=== PATIENT | male | born 1985 | race Caucasian/White ===

== ENCOUNTER → 2019-03-10 | Outpatient (CLI) | payer BC ==
--- NOTE | 2019-03-10 11:54 | US ---
EXAMINATION TYPE: US scrotum with doppler. Grayscale and color Doppler Duplex imaging performed of t meena scrotum. DATE OF EXAM: 03/10/2019 COMPARISON: NONE CLINICAL HISTORY: N50.819 TESTICULAR PAIN,N43.3 TESTICLE HYDROCELE. EXAM MEASUREMENTS: TESTICLES: Right Testicle: 4.4 x 2.2 x 3.2 cm Left Testicle: 4.3 x 2.3 x 2.6 cm EPIDIDYMIS HEAD: Right Epididymis: 1.5 x 0.8 cm Left Epididymis: 1.3 x 0.8 cm Doppler performed to assess for testicular vascularity; good bilateral color flow and waveforms are s een. There is no evidence of testicular torsion. large complex collection inferior and lateral to right testicle, measures 5.5 x 2.3 x 2.7cm. This are a has increased vascular flow. External to the testicle. Small left epi head cyst measures 0.3 x 0.3 cm. IMPRESSION: 1. Area of increased vascularity external to the right testicle could be varicoceles.
== END | disposition home or self-care (01) ==
LOC: RADUSWWP 10:54
PROVIDERS: ATTEND Internal Medicine
DX: N43.3 Hydrocele, unspecified (principal); Z88.2 Allergy status to sulfonamides
CPT/HCPCS: 76870; 93975

== ENCOUNTER 2019-03-16 17:36 | Emergency (ER) | payer BC ==
[2019-03-16 18:02] VITALS: RESP 18
[2019-03-16] MEDS ORDERED: SODIUM CHLORIDE 0.9% 1,000 ML IV STA (18:40)
[2019-03-16] MEDS ORDERED: IBUPROFEN 800 MG TAB PO STA (18:41)
[2019-03-16] MEDS ORDERED: ACETAMINOPHEN TAB 500 MG TAB PO STA (18:41)
--- NOTE | 2019-03-16 18:42 | ED ---
Male Urogenital HPI - General Chief complaint: Urogenital Stated complaint: testicular pain Time Seen by Provider: 03/16/19 18:01 Source: patient, family, RN notes reviewed, old records reviewed Mode of arrival: ambulatory Limitations: no limitations - History of Present Illness Initial comments: This is a 31-year-old male the ER for evaluation. Patient presented with recurrent episodes of syncope pain for symptoms a few weeks ago most recently about 2 days but she did have outpatient off some. Patient is now also complaining of fever. Patient has significant scrotal pain swelling and erythema. Denies dysuria. Nausea no vomiting. States he does not feel well. No prior history of similar complaint, denies unusual sexual practices MD Complaint: testicle pain, testicle swelling -: days(s) Location: right testicle, left testicle Radiation: none Severity: moderate Severity scale (1-10): 3 Consistency: constant Improves with: none Worsens with: none Reports: swelling, fever - Related Data Home Medications Medication Instructions Recorded Confirmed Ciprofloxacin HCl [Cipro] 500 mg PO Q12HR 03/16/19 03/16/19 Dextroamphetamine/Amphetamine 30 mg PO BID 03/16/19 03/16/19 [Adderall] Diclofenac Sodium [Voltaren] 75 mg PO BID 03/16/19 03/16/19 methylPREDNISolone [Medrol Dose See Taper PO DIRECTED 03/16/19 03/16/19 Pack] Allergies Allergy/AdvReac Type Severity Reaction Status Date / Time Sulfa (Sulfonamide Allergy Anaphylaxis Verified 03/16/19 18:22 Antibiotics) Review of Systems ROS Statement: Those systems with pertinent positive or pertinent negative responses have been documented in the HPI. ROS Other: All systems not noted in ROS Statement are negative. Past Medical History Past Medical History: No Reported History History of Any Multi-Drug Resistant Organisms: None Reported Past Surgical History: Adenoidectomy Past Psychological History: No Psychological Hx Reported Smoking Status: Current some day smoker Past Alcohol Use History: Rare Past Drug Use History: None Reported General Exam Limitations: no limitations General appearance: alert, in no apparent distress Head exam: Present: atraumatic, normocephalic, normal inspection Eye exam: Present: normal appearance, PERRL, EOMI. Absent: scleral icterus, conjunctival injection, periorbital swelling ENT exam: Present: normal exam, mucous membranes moist Neck exam: Present: normal inspection. Absent: tenderness, meningismus, lymphadenopathy Respiratory exam: Present: normal lung sounds bilaterally. Absent: respiratory distress, wheezes, rales, rhonchi, stridor Cardiovascular Exam: Present: regular rate, normal rhythm, normal heart sounds. Absent: systolic murmur, diastolic murmur, rubs, gallop, clicks GI/Abdominal exam: Present: soft, normal bowel sounds. Absent: distended, tenderness, guarding, rebound, rigid exam: Present: testicular tenderness, scrotal swelling Extremities exam: Present: normal inspection, full ROM, normal capillary refill. Absent: tenderness, pedal edema, joint swelling, calf tenderness Back exam: Present: normal inspection Neurological exam: Present: alert, oriented X3, CN II-XII intact Psychiatric exam: Present: normal affect, normal mood Skin exam: Present: warm, dry, intact, normal color. Absent: rash Course Vital Signs 03/16/19 17:58 Temperature 102.5 F H Pulse Rate 96 Respiratory 18 Rate Blood Pressure 146/70 O2 Sat by Pulse 97 Oximetry - Reevaluation(s) Reevaluation #1: 03/16/19 19:19 Medical records reviewed Reevaluation #2: 03/16/19 19:19 Patient feeling better with fever control and hydration Medical Decision Making - Medical Decision Making 33 male the ER for evaluation of scrotal pain and tenderness. Severe. Positive minimal orchitis, patient will be discharged home on antibiotics. - Lab Data Result diagrams: 03/16/19 19:11 03/16/19 19:11 Lab Results 03/16/19 03/16/19 03/16/19 Range/Units 18:26 19:11 19:11 WBC 8.3 (3.8-10.6) k/uL RBC 5.06 (4.30-5.90) m/uL Hgb 15.3 (13.0-17.5) gm/dL Hct 44.0 (39.0-53.0) % MCV 87.0 (80.0-100.0) fL MCH 30.2 (25.0-35.0) pg MCHC 34.7 (31.0-37.0) g/dL RDW 12.8 (11.5-15.5) % Plt Count 207 (150-450) k/uL Neutrophils % 83 % Lymphocytes % 9 % Monocytes % 6 % Eosinophils % 1 % Basophils % 0 % Neutrophils # 6.9 (1.3-7.7) k/uL Lymphocytes # 0.7 L (1.0-4.8) k/uL Monocytes # 0.5 (0-1.0) k/uL Eosinophils # 0.1 (0-0.7) k/uL Basophils # 0.0 (0-0.2) k/uL Sodium 136 L (137-145) mmol/L Potassium 4.0 (3.5-5.1) mmol/L Chloride 104 (98-107) mmol/L Carbon Dioxide 24 (22-30) mmol/L Anion Gap 8 mmol/L BUN 9 (9-20) mg/dL Creatinine 0.87 (0.66-1.25) mg/dL Est GFR (CKD-EPI)AfAm >90 (>60 ml/min/1.73 sqM) Est GFR (CKD-EPI)NonAf >90 (>60 ml/min/1.73 sqM) Glucose 109 H (74-99) mg/dL Calcium 8.7 (8.4-10.2) mg/dL Phosphorus 3.3 (2.5-4.5) mg/dL Magnesium 1.7 (1.6-2.3) mg/dL Total Bilirubin 0.6 (0.2-1.3) mg/dL AST 22 (17-59) U/L ALT 60 (21-72) U/L Alkaline Phosphatase 51 (38-126) U/L Total Protein 6.2 L (6.3-8.2) g/dL Albumin 3.5 (3.5-5.0) g/dL Urine Color Yellow Urine Appearance Cloudy (Clear) Urine pH 6.0 (5.0-8.0) Ur Specific [place] 1.023 (1.001-1.035) Urine Protein 1+ H (Negative) Urine Glucose (UA) Negative (Negative) Urine Ketones Negative (Negative) Urine Blood Small H (Negative) Urine Nitrite Negative (Negative) Urine Bilirubin Negative (Negative) Urine Urobilinogen <2.0 (<2.0) mg/dL Ur Leukocyte Esterase Large H (Negative) Urine RBC 54 H (0-5) /hpf Urine WBC >182 H (0-5) /hpf Urine WBC Clumps Many H (None) /hpf Ur Squamous Epith Cells 1 (0-4) /hpf Urine Mucus Many H (None) /hpf - Radiology Data Radiology results: report reviewed (Ultrasound scrotum shows positive hypervascularity right testicle, CT head and pelvis negative for acute disease), image reviewed Disposition Clinical Impression: Epididymo-orchitis Disposition: HOME SELF-CARE Condition: Good Instructions (If sedation given, give patient instructions): Epididymo-Orchitis (ED) Is patient prescribed a controlled substance at d/c from ED?: No Referrals: Vianca Nugent MD [Primary Care Provider] - 1-2 days
[2019-03-16 18:46] LABS: Appearance,Urine Cloudy (Clear); Bilirubin,Urine Negative (Negative); Blood,Urine Small (Negative); Color,Urine Yellow; Glucose,Urine (UA) Negative (Negative); Ketones,Urine Negative (Negative); Leukocyte Esterase,Urine Large (Negative); Mucus,Urine Many /hpf; Nitrite,Urine Negative (Negative); Protein,Urine 1+ (Negative); RBC,Urine 54 /hpf (0-5); Specific Gravity,Urine 1.023 (1.001-1.035); Squamous Epithelial Cell,Urine 1 /hpf (0-4); Urobilinogen,Urine <2.0 mg/dL (<2.0); WBC,Urine >182 /hpf (0-5)
[2019-03-16 19:34] LABS: Basophils % (A) 0 %; Eosinophils # (A) 0.1 k/uL (0-0.7); Eosinophils % (A) 1 %; HGB 15.3 gm/dL (13.0-17.5); Lymphocytes # (A) 0.7 k/uL (1.0-4.8); Lymphocytes % (A) 9 %; MCH 30.2 pg (25.0-35.0); MCHC 34.7 g/dL (31.0-37.0); Mean Platelet Volume 6.7; Monocytes # (A) 0.5 k/uL (0-1.0); Monocytes % (A) 6 %; Neutrophils # (A) 6.9 k/uL (1.3-7.7); Neutrophils % (A) 83 %; Platelet Count 207 k/uL (150-450); RBC 5.06 m/uL (4.30-5.90); RDW 12.8 % (11.5-15.5); WBC 8.3 k/uL (3.8-10.6)
[2019-03-16 19:41] LABS: ALT 60 U/L (21-72); AST 22 U/L (17-59); African American GFR (CKD) >90 (>60 ml/min/1.73 sqM); Albumin 3.5 g/dL (3.5-5.0); Alkaline Phosphatase 51 U/L (38-126); Anion Gap 8 mmol/L; Blood Urea Nitrogen 9 mg/dL (9-20); Calcium 8.7 mg/dL (8.4-10.2); Carbon Dioxide 24 mmol/L (22-30); Chloride 104 mmol/L (98-107); Glucose 109 mg/dL (74-99); Magnesium 1.7 mg/dL (1.6-2.3); Phosphorus 3.3 mg/dL (2.5-4.5); Sodium 136 mmol/L (137-145); Total Bilirubin 0.6 mg/dL (0.2-1.3); Total Protein 6.2 g/dL (6.3-8.2)
[2019-03-16] MEDS ORDERED: AZITHROMYCIN 500 MG TAB PO STA (20:26)
--- NOTE | 2019-03-16 20:26 | US ---
EXAMINATION TYPE: US scrotum with doppler. Grayscale and color Doppler Duplex imaging performed of t he scrotum. DATE OF EXAM: 03/16/2019 COMPARISON: US CLINICAL HISTORY: Pain. Pain outside right testicle x 1 week. EXAM MEASUREMENTS: TESTICLES: Right Testicle: 4.2 x 3.5 x 2.5 cm Left Testicle: 4.3 x 2.9 x 2.4 cm EPIDIDYMIS HEAD: Right Epididymis: 1.3 x 1.9 x 1.0 cm Left Epididymis: 1.4 x 1.8 x 1.0 cm Doppler performed to assess for testicular vascularity; good bilateral color flow and waveforms are s een. There is no evidence of testicular torsion. Presence of hydroceles: Right: 3.0 x 0.7 x 1.0 cm. Presence of varicoceles: not seen ?Heterogeneous area lateral to right testicle measurin.7 x 2.7 x 1.7 cm. ?Epididymis. Increased v ascularity. Heterogeneous area adjacent to left testicle appears to be epididymis. ?Increased vascularity. Anechoic area seen left epididymal head: 0.4 x 0.4 x 0.4 cm. IMPRESSION: No testicular torsion or mass. Right-sided hydrocele. There is some hypervascularity on t he right side suggestive of epididymitis.
[2019-03-16] MEDS ORDERED: CIPROFLOXACIN HCL 500 MG TAB PO STA (20:29)
[2019-03-16 20:51] VITALS: BP 117/57; PULSE 83; TEMP 98
--- NOTE | 2019-03-16 21:04 | CT ---
EXAMINATION TYPE: CT abdomen pelvis wo con DATE OF EXAM: 03/16/2019 COMPARISON: None HISTORY: Testicular swelling and pain x1 week, mostly RT side. PT denies any injury. CT DLP: 1939.8 mGycm Automated exposure control for dose reduction was used. TECHNIQUE: Helical acquisition of images was performed from the lung bases through the pelvis. FINDINGS: Lung bases are clear. There is no pleural effusion. Heart size is normal. Stomach appears normal. Liver spleen pancreas gallbladder appear normal. Bile ducts are not dilated. There is no adrenal mass. Kidneys have normal size and contour. There is no hydronephrosis. There is no retroperitoneal adenopathy. Appendix appears normal. Ureters are not dilated. Bladder distends smoothly. There is some thickening of the right side spermatic cord. There is mild f at stranding of the right hemiscrotum. There is no free fluid in the pelvis. There are sigmoid diverticula. There is no sign of diverticulit is. There is no mesenteric edema. There is no ascites or free air. The lumbar spine is intact. Bony p ayred appears intact. IMPRESSION: NO RENAL STONE OR OBSTRUCTION. NORMAL APPENDIX. THERE IS EVIDENCE OF SOME INFLAMMATORY CHANGES OF THE RIGHT HEMISCROTUM THAT IS PARTLY VISUALIZED AND CONSISTENT WITH EPIDIDYMITIS.
== END 2019-03-16 21:35 | disposition home or self-care (01) ==
LOC: EC 17:36
DX: N45.3 Epididymo-orchitis (principal); R55 Syncope and collapse; F17.200 Nicotine dependence, unspecified, uncomplicated; Z88.2 Allergy status to sulfonamides
CPT/HCPCS: 36415; 80053; 83735; 84100; 85025; 81001; 87040; 87491; 87591; 87086; 93975; 76870; 74176; 96365; 96361; 99285; J0696

== ENCOUNTER → 2023-01-30 | Outpatient (CLI) | payer OTHER ==
--- NOTE | 2023-01-30 11:09 | XR ---
EXAMINATION TYPE: XR chest 2V DATE OF EXAM: 01/30/2023 10:48 AM COMPARISON: None TECHNIQUE: XR chest 2V Frontal and lateral views of the chest. CLINICAL INDICATION:Male, 37 years old with history of COUGH; FINDINGS: Lungs/Pleura: There is no evidence of pleural effusion, focal consolidation, or pneumothorax. Pulmonary vascularity: Unremarkable. Heart/mediastinum: Cardiomediastinal silhouette is unremarkable. Musculoskeletal: No acute osseous pathology. Remote right rib injury. IMPRESSION: No acute cardiopulmonary disease/process.
[2023-01-31 09:53] LABS: Basophils # (A) 0.03 X 10*3/uL (0.00-0.10); Basophils % (A) 0.5 %; Eosinophils # (A) 0.18 X 10*3/uL (0.04-0.35); Eosinophils % (A) 2.8 %; HGB 17.2 d/dL (12.0-15.0); Lymphocytes # (A) 1.04 X 10*3/uL (0.90-5.00); Lymphocytes % (A) 16.2 %; MCH 30.6 pg (27.0-32.0); MCHC 34.4 d/dL (32.0-37.0); MCV 88.8 FL (80.0-97.0); Mean Platelet Volume 10.5 FL (9.5-12.2); Monocytes # (A) 0.53 X 10*3/uL (0.20-1.00); Monocytes % (A) 8.3 %; NRBC Per 100 WBC 0 X 10*3/uL (0.00-0.01); Neutrophils # (A) 4.63 X 10*3/uL (1.80-7.70); Platelet Count 199 X 10*3/uL (140-440); RBC 5.63 X 10*6/uL (4.40-5.60); RDW 12.3 % (11.5-14.5); WBC 6.42 X 10*3/uL (4.50-10.00)
[2023-01-31 10:45] LABS: % Iron Saturation 18.23 (15.00-50.00); ALT 28 U/L (10-49); AST 25 U/L (14-35); Albumin 5.1 d/dL (3.8-4.9); Albumin/Globulin Ratio 2.12 Ratio (1.60-3.17); Alkaline Phosphatase 53 U/L (41-126); BUN/Creat Ratio 25.25 Ratio (12.00-20.00); Blood Urea Nitrogen 20.2 mg/dL (9.0-27.0); C Reactive Protein <0.30 mg/dL (0.00-0.80); Carbon Dioxide 24.6 mmol/L (21.6-31.8); Chloride 104 mmol/L (96-109); Chol/HDL Ratio 2.84 Ratio; Creatine Kinase 170 U/L (35-257); Globulin 2.4 d/dL (1.6-3.3); Glucose 100 mg/dL (70-110); Iron 76 UG/DL (65-175); LDL Cholesterol,Calculated 101.3 mg/dL (0.0-131.0); Magnesium 2.1 mg/dL (1.5-2.4); Phosphorus 2.9 mg/dL (2.4-5.1); Potassium 4.8 mmol/L (3.5-5.5); Sodium 140 mmol/L (135-145); Total Bilirubin 0.5 mg/dL (0.3-1.2); Total Iron Binding Capacity 417 UG/DL (228-460); Total Protein 7.5 d/dL (6.2-8.2); Uric Acid 5.2 mg/dL (3.7-8.7); VLDL Calculation 11.48 mg/dL (5.00-40.00)
[2023-01-31 14:10] LABS: Erythrocyte Sedimentation Rate 1 mm/Hr (0-15)
[2023-01-31 17:46] LABS: Microalbumin Creatinine Ratio <46 mg/g Cr (0-30); Urine Creatinine 26.3 mg/dL (39.0-259.0)
== END | disposition home or self-care (01) ==
LOC: LABWHC1 10:09
PROVIDERS: ATTEND Internal Medicine
DX: Z00.00 Encounter for general adult medical examination without abnormal findings (principal); I10 Essential (primary) hypertension; D64.9 Anemia, unspecified; M10.9 Gout, unspecified; E78.5 Hyperlipidemia, unspecified; E11.65 Type 2 diabetes mellitus with hyperglycemia; N39.0 Urinary tract infection, site not specified; E55.9 Vitamin D deficiency, unspecified
CPT/HCPCS: 36415; 71046; 80053; 80061; 82043; 82306; 82550; 82570; 82728; 83036; 83540; 83550; 83735; 84100; 84153; 84443; 84550; 85025; 85652; 86140

== ENCOUNTER → 2023-08-05 | Outpatient (CLI) | payer OTHER ==
[2023-08-05 10:00] LABS: Basophils % (A) 0 %; Eosinophils # (A) 0.1 k/uL (0-0.7); Eosinophils % (A) 2 %; HCT 49.1 % (39.0-53.0); HGB 16.9 gm/dL (13.0-17.5); Lymphocytes # (A) 1.6 k/uL (1.0-4.8); Lymphocytes % (A) 19 %; MCH 31.4 pg (25.0-35.0); MCHC 34.4 g/dL (31.0-37.0); MCV 91.2 fL (80.0-100.0); Mean Platelet Volume 7.9; Monocytes # (A) 0.4 k/uL (0-1.0); Monocytes % (A) 5 %; Neutrophils # (A) 5.8 k/uL (1.3-7.7); Neutrophils % (A) 72 %; Platelet Count 209 k/uL (150-450); RBC 5.39 m/uL (4.30-5.90); RDW 12.3 % (11.5-15.5); WBC 8.1 k/uL (3.8-10.6)
== END | disposition home or self-care (01) ==
LOC: LABPAT 08:43
PROVIDERS: ATTEND Surgery
DX: Z01.812 Encounter for preprocedural laboratory examination (principal); I10 Essential (primary) hypertension; K40.90 Unilateral inguinal hernia, without obstruction or gangrene, not specified as recurrent; I45.10 Unspecified right bundle-branch block
CPT/HCPCS: 36415; 85025; 93005

== ENCOUNTER 2023-08-06 06:15 | Day surgery (SDC) | payer OTHER ==
[~2023-08-06 06:15] MED LIST: ACETAMINOPHEN TAB 500 MG TAB PO PRN; DEXAMETHASONE SOD PHOSPHATE 4 MG/ML 1 ML VIAL IV ONE; HEPARIN SODIUM,PORCINE 5,000 UNIT/ML 1 ML VIAL SQ PRN; LACTATED RINGERS 1,000 ML IV SCH; LIDOCAINE 1% (10MG/ML) FOR IV START INTRADERMA PRN; ONDANSETRON 4 MG/2 ML VIAL IVP ONE; droPERidol 5 MG/2 ML VIAL IVP ONE
[2023-08-06] MEDS ORDERED: HYDROmorphone 0.5 MG/0.5 ML SYRINGE IVP PRN (07:00)
[2023-08-06] MEDS ORDERED: fentaNYL (PF) 50 MCG/ML 2 ML AMP ONE (07:27)
[2023-08-06] MEDS ORDERED: PHENYLEPHRINE-0.9% NACL SYG 1,000 MCG/10 ML SYRINGE ONE (07:27)
[2023-08-06] MEDS ORDERED: MIDAZOLAM 2 MG/2 ML VIAL ONE (07:27)
[2023-08-06] MEDS ORDERED: PROPOFOL 10 MG/ML 20 ML VIAL IV ONE (07:27)
[2023-08-06] MEDS ORDERED: LIDOCAINE 1% INJ 10MG/ML (20 ML MDV) ONE (07:27)
[2023-08-06] MEDS ORDERED: KETOROLAC 15 MG/ML 1 ML VIAL ONE (07:27)
[2023-08-06] MEDS ORDERED: GLYCOPYRROLATE 0.2 MG/ML 2 ML VIAL ONE (07:27)
[2023-08-06] MEDS ORDERED: HYDROmorphone (PF) 1 MG/ML ONE (07:27)
[2023-08-06] MEDS ORDERED: ROCURONIUM 10 MG/ML (5 ML VIAL) IV ONE (07:27)
[2023-08-06] MEDS ORDERED: NEOSTIGMINE 1 MG/ML 10 ML VIAL ONE (07:27)
[2023-08-06] MEDS ORDERED: SUCCINYLCHOLINE CHLORIDE 200 MG/10 ML VIAL IV ONE (07:27)
--- NOTE | 2023-08-06 07:27 | P.GSHP ---
History of Present Illness H&P Date: 08/06/23 Chief Complaint: Left inguinal hernia 38-year-old male here today for laparoscopic repair left inguinal hernia. This is been present for the last several months. Gradually increasing in size. Mild soreness. No symptoms on the right. Past Medical History Past Medical History: No Reported History Additional Past Medical History / Comment(s): Lt. inguinal hernia History of Any Multi-Drug Resistant Organisms: None Reported Past Surgical History: Adenoidectomy Past Anesthesia/Blood Transfusion Reactions: No Reported Reaction Past Psychological History: No Psychological Hx Reported Past Drug Use History: None Reported - Past Family History Father Family Medical History: No Reported History Mother Family Medical History: No Reported History Medications and Allergies Home Medications Medication Instructions Recorded Confirmed Type Dextroamphetamine/Amphetamine 10 mg PO BID 08/02/23 08/02/23 History [Adderall] Multivitamin [Multivitamins Adult 1 tab PO DAILY 08/02/23 08/02/23 History Gummies] amLODIPine [Norvasc] 2.5 mg PO BID 08/02/23 08/02/23 History lisinopriL 2.5 mg PO BID 08/02/23 08/02/23 History Allergies Allergy/AdvReac Type Severity Reaction Status Date / Time Sulfa (Sulfonamide Allergy Anaphylaxis Verified 08/06/23 06:42 Antibiotics) Surgical - Exam Vital Signs Temp Pulse Resp BP Pulse Ox 96.9 F L 63 16 141/76 98 08/06/23 06:50 08/06/23 06:50 08/06/23 06:50 08/06/23 06:50 08/06/23 06:50 Physical exam: General: Well-developed, well-nourished HEENT: Normocephalic, sclerae nonicteric Abdomen: Nontender, nondistended, reducible left inguinal hernia Extremities: No edema Neuro: Alert and oriented Assessment and Plan (1) Left inguinal hernia Narrative/Plan: 38-year-old male with reducible left inguinal hernia. We'll proceed with laparoscopic da Karin assisted repair left inguinal hernia with mesh for possible open, possible bilateral. Risks of bleeding, infection, recurrence, bladder and bowel injury, numbness, nerve injury, conversion to an open procedure were discussed with the patient. The patient understands and wishes to proceed. Current Visit: Yes Status: Acute Code(s): K40.90 - UNIL INGUINAL HERNIA, W/O OBST OR GANGR, NOT SPCF RECUR SNOMED Code(s): 831473552
[2023-08-06] MEDS ORDERED: BUPIVACAINE (PF) 0.25% 10 ML VIAL SQ ONE ×2 (07:29→07:55)
[2023-08-06] MEDS ORDERED: LACTATED RINGERS 1,000 ML IV ONE ×2 (09:22→11:08)
--- NOTE | 2023-08-06 09:28 | P.OP ---
Date of Procedure: 08/06/23 Procedure(s) Performed: PREOPERATIVE DIAGNOSIS: Left inguinal hernia POSTOPERATIVE DIAGNOSIS: Left indirect inguinal hernia PROCEDURE: Da Karin assisted repair left indirect inguinal hernia with mesh SURGEON: Dr. Zaman ANESTHESIA: General OPERATIVE PROCEDURE DETAILS: Patient was placed in the operating table in the supine position. The patient was placed under general anesthesia. The abdomen was prepped and draped in usual sterile fashion. A small curvilinear supraumbilical incision was made. The fascia was retracted anteriorly with Renetta forceps. The Veress needle was inserted. The saline drop test was normal. Insufflation took place to 15 mmHg. An 8 mm trocar was placed into the peritoneal cavity. 2 additional 8 mm trochars were placed in the right upper quadrant and left upper quadrant under visualization. The robotic arms were then brought in and docked into place. The fenestrated bipolar was used in the left arm and the laparoscopic linh was utilized in the right arm. A 30 8 mm scope was used in the up position. The peritoneal cavity was inspected. The patient a large indirect hernia on the left-hand side. There was some chronic induration at the hernia sac. The peritoneum was incised in a horizontal fashion cephalad to the internal inguinal ring. Following that careful dissection of the preperitoneal space took place. This took place using both electrocautery, sharp dissection but primarily blunt dissection. Visualization of the pubic tubercle and Reginaldo's ligament took place medially. Full dissection took place laterally as well. The hernia sac was fully dissected. Once we had adequate space the [id number] Progrip mesh was advanced into the preperitoneal space and flattened out appropriately to cover all potential hernia sites. The mesh was sutured medially to the Reginaldo's ligament and midline using a running 30 absorbable the lock suture. The peritoneal defect was then closed using a absorbable 2-0 VLok suture. The hernia sac was incorporated into the peritoneal closure to help prevent future recurrence. The pneumoperitoneum was then evacuated. The skin of all 3 sites was closed using a 4-0 Monocryl stitch. Skin glue was then applied. TYPE OF MESH USED: 15 cm progrip LOCATION OF MESH: Preperitoneal FIXATION: 3 LV lock PREOPERATIVE DISCUSSION ON SMOKING CESSASTION: Yes PREOPERATIVE DISCUSSION ON MORBID OBESITY: Yes PREOPERATIVE DISCUSSION ON APPROPRIATE USE OF NARCOTIC USE: Yes PREOPERATIVE EDUCATION: Multi Modal, Smoking Cessation and Weight Loss with BMI over 35. DISPOSITION: Stable to recovery room
[2023-08-06 10:06] VITALS: TEMP 97.6
[2023-08-06 11:19] VITALS: BP 109/65; PULSE 54; RESP 14
[2023-08-06] MEDS ORDERED: TAMSULOSIN 0.4 MG CAP.ER.24H PO STA (11:44)
[2023-08-06] MEDS ORDERED: TAMSULOSIN 0.4 MG CAP.ER.24H PO ONE (11:49)
[2023-08-06] MEDS ORDERED: ACETAMINOPHEN TAB 325 MG TAB PO SCH (12:00)
[2023-08-06] MEDS ORDERED: IBUPROFEN 600 MG TAB PO SCH (12:30)
== END 2023-08-06 12:44 | disposition home or self-care (01) ==
LOC: OR 06:15
PROVIDERS: ATTEND Surgery
DX: K40.90 Unilateral inguinal hernia, without obstruction or gangrene, not specified as recurrent (principal); I10 Essential (primary) hypertension; Z79.899 Other long term (current) drug therapy; Z87.891 Personal history of nicotine dependence; Z88.2 Allergy status to sulfonamides; Z88.1 Allergy status to other antibiotic agents
CPT/HCPCS: 49650; S2900

== ENCOUNTER 2023-08-20 12:31 | Emergency (ER) | payer OTHER ==
[2023-08-20 13:11] VITALS: RESP 18
--- NOTE | 2023-08-20 13:55 | US ---
EXAMINATION TYPE: US groin LT DATE OF EXAM: 08/20/2023 COMPARISON: NONE CLINICAL INDICATION: Male, 38 years old with history of pain, swelling, s/p hernia repair; Lt groin h ernia repair x 2 weeks ago, pain and discomfort ever since, pt. still feels tissue in left scrotum TECHNIQUE: several images acquired at area of concern FINDINGS: the spermatic cord appears edematous with varicoceles. There appears to be a possible pers istent 1.7cm fat herniation in the scrotum which is reducible with compression. IMPRESSION: As above
--- NOTE | 2023-08-20 15:19 | ED ---
General Adult HPI - General Chief complaint: Recheck/Abnormal Lab/Rx Stated complaint: Post op comp- hernia Time Seen by Provider: 08/20/23 12:57 Source: patient, RN notes reviewed Mode of arrival: ambulatory Limitations: no limitations - History of Present Illness Initial comments: 38-year-old male presents emergency department chief complaint of left-sided groin pain. Patient states he had surgery 2 weeks ago for a left inguinal hernia by Dr. Zaman. Patient states he did have follow-up at 1 week in which he states he was having some mild discomfort in the left he states worsening states every time he stands up he feels some slight down and causes extreme scrotal pain. He states there is some swelling he states it feels similar to when he is hernia but slightly different. Denies any redness - Related Data Home Medications Medication Instructions Recorded Confirmed Dextroamphetamine/Amphetamine 10 mg PO BID 08/02/23 08/02/23 [Adderall] Multivitamin [Multivitamins Adult 1 tab PO DAILY 08/02/23 08/02/23 Gummies] amLODIPine [Norvasc] 2.5 mg PO BID 08/02/23 08/02/23 lisinopriL 2.5 mg PO BID 08/02/23 08/02/23 Previous Rx's Medication Instructions Recorded oxyCODONE HCL [OxyIR] 5 mg PO Q6H PRN 3 Days #6 tab 08/06/23 Allergies Allergy/AdvReac Type Severity Reaction Status Date / Time Sulfa (Sulfonamide Allergy Anaphylaxis Verified 08/20/23 12:47 Antibiotics) Review of Systems ROS Statement: Those systems with pertinent positive or pertinent negative responses have been documented in the HPI. ROS Other: All systems not noted in ROS Statement are negative. Past Medical History Past Medical History: No Reported History, Hypertension History of Any Multi-Drug Resistant Organisms: None Reported Past Surgical History: Adenoidectomy, Hernia Repair Past Psychological History: No Psychological Hx Reported Smoking Status: Never smoker Past Alcohol Use History: Occasional Past Drug Use History: None Reported, Marijuana General Exam Limitations: no limitations General appearance: alert, in no apparent distress Head exam: Present: atraumatic, normocephalic, normal inspection Eye exam: Present: normal appearance, PERRL, EOMI. Absent: scleral icterus, conjunctival injection, periorbital swelling ENT exam: Present: normal exam, mucous membranes moist Neck exam: Present: normal inspection, full ROM. Absent: tenderness, meningismus, lymphadenopathy Respiratory exam: Present: normal lung sounds bilaterally. Absent: respiratory distress, wheezes, rales, rhonchi, stridor Cardiovascular Exam: Present: regular rate, normal rhythm, normal heart sounds. Absent: systolic murmur, diastolic murmur, rubs, gallop, clicks GI/Abdominal exam: Present: soft, normal bowel sounds. Absent: distended, tenderness, guarding, rebound, rigid exam: Present: normal inspection, other (Tenderness to the left inguinal region) Back exam: Absent: CVA tenderness (R), CVA tenderness (L) Course Vital Signs 08/20/23 12:44 Temperature 99.1 F Pulse Rate 64 Respiratory 18 Rate Blood Pressure 158/88 O2 Sat by Pulse 100 Oximetry Medical Decision Making - Medical Decision Making Was pt. sent in by a medical professional or institution (, PA, [employer], urgent care, hospital, or correction...) When possible be specific @ -No Did you speak to anyone other than the patient for history (EMS, parent, family, police, friend...)? What history was obtained from this source @ -No Did you review nursing and triage notes (agree or disagree)? Why? @ -I reviewed and agree with nursing and triage notes Were old charts reviewed (outside hosp., previous admission, EMS record, old EKG, old radiological studies, urgent care reports/EKG's, correction records)? Report findings @ -No old charts were reviewed Differential Diagnosis (chest pain, altered mental status, abdominal pain women, abdominal pain men, vaginal bleeding, weakness, fever, dyspnea, syncope, headache, dizziness, GI bleed, back pain, seizure, CVA, palpatations, mental health, musculoskeletal)? @ -[Differential Abdominal Pain Men: Appendicitis, cholecystitis, diverticulosis, ischemic bowel, pancreatitis, hepatitis, UTI, gastroenteritis, AAA, incarcerated hernia, bowel obstruction, constipation, inflammatory bowel, hepatitis, peptic ulcer disease, splenic infarction, perforated viscus, testicular torsion, this is not meant to be an all-inclusive list EKG interpreted by me (3pts min.). @ -None X-rays interpreted by me (1pt min.). @ -[None done CT interpreted by me (1pt min.). @ -None done U/S interpreted by me (1pt. min.). @ -[Ultrasound shows possible small fat-containing area What testing was considered but not performed or refused? (CT, X-rays, U/S, labs)? Why? @ -None What meds were considered but not given or refused? Why? @ -None Did you discuss the management of the patient with other professionals (professionals i.e. Dr., PA, [employer], lab, RT, psych nurse, high school social studies teacher, pharmacognosy teacher, teacher, railway patrol officer, case packer)? Give summary @ -[Dr. Zaman regarding ultrasound and patient's condition Was smoking cessation discussed for >3mins.? @ -No Was critical care preformed (if so, how long)? @ -No Were there social determinants of health that impacted care today? How? (Benigno elessness, low income, unemployed, alcoholism, drug addiction, transportation, low edu. Level, literacy, decrease access to med. care, fci, rehab)? @ -No Was there de-escalation of care discussed even if they declined (Discuss DNR or withdrawal of care, Hospice)? DNR status @ -No What co-morbidities impacted this encounter? (DM, HTN, Smoking, COPD, CAD, Cancer, CVA, ARF, Chemo, Hep., AIDS, mental health diagnosis, sleep apnea, morbid obesity)? @ -None Was patient admitted / discharged? Hospital course, mention meds given and route, prescriptions, significant lab abnormalities, going to OR and other pertinent info. @ -[Discharged patient will follow-up with next week. Patient provided analgesics return parameters were discussed. Undiagnosed new problem with uncertain prognosis? @ -No Drug Therapy requiring intensive monitoring for toxicity (Heparin, Nitro, Insulin, Cardizem)? @ -No Were any procedures done? @ -No Diagnosis/symptom? @ -Groin pain Acute, or Chronic, or Acute on Chronic? @ -[Acute Uncomplicated (without systemic symptoms) or Complicated (systemic symptoms)? @ -Uncomplicated Side effects of treatment? @ -No Exacerbation, Progression, or Severe Exacerbation? @ -No Poses a threat to life or bodily function? How? (Chest pain, [place], [place], pneumonia, PE, COPD, DKA, ARF, appy, cholecystitis, CVA, Diverticulitis, Homicidal, Suicidal, threat to staff... and all critical care pts) @ -No Disposition Clinical Impression: Groin pain Disposition: HOME SELF-CARE Condition: Stable Instructions (If sedation given, give patient instructions): Groin Pain (ED) Additional Instructions: Please return to the Emergency Department if symptoms worsen or any other concerns. Is patient prescribed a controlled substance at d/c from ED?: No Referrals: Jordan Busitllo MD [Primary Care Provider] - 1-2 days Sushil Zaman MD [Medical Doctor] - 1-2 days Time of Disposition: 15:52
[2023-08-20] MEDS ORDERED: ACET/COD 300 MG/30 MG STARTER PACK 6 TAB BTL PO STA (15:53)
[2023-08-20 16:05] VITALS: BP 129/71; PULSE 63; TEMP 98.1
== END 2023-08-20 16:12 | disposition home or self-care (01) ==
LOC: EC 12:31
DX: R10.32 Left lower quadrant pain (principal); I10 Essential (primary) hypertension; F12.90 Cannabis use, unspecified, uncomplicated; Z79.899 Other long term (current) drug therapy; Z88.2 Allergy status to sulfonamides
CPT/HCPCS: 99284

== ENCOUNTER → 2023-08-25 | Outpatient (CLI) | payer OTHER ==
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
== END | disposition home or self-care (01) ==
LOC: RADCTMAIN 16:46
PROVIDERS: ATTEND Surgery
DX: K57.30 Diverticulosis of large intestine without perforation or abscess without bleeding (principal); K40.90 Unilateral inguinal hernia, without obstruction or gangrene, not specified as recurrent; N50.812 Left testicular pain; Z98.890 Other specified postprocedural states
CPT/HCPCS: 72193; Q9967

== ENCOUNTER 2024-01-16 00:12 | Emergency (ER) | payer BC, OTHER ==
[2024-01-16 00:19] VITALS: TEMP 97.5
[2024-01-16] MEDS: DIPH,PERTUS(ACELL)TETVAC-LF 0.5 ML VIAL IM ONE (01:24)
[2024-01-16] MEDS: MORPHINE SULFATE 4 MG/ML SYRINGE IM STA (01:26)
[2024-01-16 01:59] VITALS: RESP 18
[2024-01-16] MEDS: HYDROmorphone 0.5 MG/0.5 ML SYRINGE IM STA (02:47)
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
[2024-01-16 04:07] VITALS: BP 113/65; PULSE 75
--- NOTE | 2024-01-16 04:54 | XR ---
EXAMINATION TYPE: XR tibia fibula LT DATE OF EXAM: 01/16/2024 CLINICAL HISTORY: Fall injury with pain TECHNIQUE: Two views of the left leg are obtained. COMPARISON: None. FINDINGS: There is an acute comminuted minimally displaced fracture through the proximal metadiaphysi s of the tibia with more prominent lateral component having proximal intra-articular extension. There is increased soft tissue density consistent with moderate to large joint effusion possible hemarthro sis at the suprapatellar level. IMPRESSION: There is acute comminuted slightly displaced intra-articular fracture through the proxim al tibia as detailed above.
== END 2024-01-16 04:08 | disposition home or self-care (01) ==
LOC: EC 00:12
DX: S82.142A Displaced bicondylar fracture of left tibia, initial encounter for closed fracture (principal); F12.90 Cannabis use, unspecified, uncomplicated; Z87.891 Personal history of nicotine dependence; Z88.2 Allergy status to sulfonamides; Z23 Encounter for immunization; V29.99XA Rider (driver) (passenger) of other motorcycle injured in unspecified traffic accident, initial encounter
CPT/HCPCS: 73590; 90715; 99284; 96372 ×2; 90471; L1830; J2270; J1170

== ENCOUNTER → 2024-01-17 | Outpatient (CLI) | payer BC ==
--- NOTE | 2024-01-17 16:47 | CT ---
EXAMINATION TYPE: CT knee LT wo con DATE OF EXAM: 01/17/2024 COMPARISON: None HISTORY: trauma CT DLP: 626.8 mGycm Automated exposure control for dose reduction was used. FINDINGS: There is a comminuted, mildly displaced intra-articular fracture of the lateral tibial plateau extend ing through the proximal metaphysis. There is slight compression of the tibial plateau. No other fractures are seen. There is a large joint effusion. There is no abnormal soft tissue calcification or foreign body. IMPRESSION: Comminuted mildly displaced fracture of the lateral tibial plateau.
== END | disposition home or self-care (01) ==
LOC: RADCTMAIN 15:22
PROVIDERS: ATTEND Orthopaedic Surgery
DX: S82.122A Displaced fracture of lateral condyle of left tibia, initial encounter for closed fracture (principal)

== ENCOUNTER → 2024-01-19 | Outpatient (CLI) | payer BC, OTHER ==
[2024-01-19 12:10] LABS: INR 0.9 (<1.2); Prothrombin Time 10.2 sec (10.0-12.5)
[2024-01-19 15:23] LABS: HCT 45.3 % (39.6-50.0); HGB 15.6 g/dL (13.0-17.0); MCH 30.2 pg (27.0-32.0); MCHC 34.4 g/dL (32.0-37.0); MCV 87.6 FL (80.0-97.0); Mean Platelet Volume 9.8 FL (9.5-12.2); NRBC Per 100 WBC 0 X 10*3/uL (0.00-0.01); Platelet Count 207 X 10*3/uL (140-440); RBC 5.17 X 10*6/uL (4.40-5.60); RDW 12.3 % (11.5-14.5); WBC 6.36 X 10*3/uL (4.50-10.00)
[2024-01-19 15:26] LABS: ALT 19 U/L (10-49); AST 20 U/L (14-35); Albumin 4.5 g/dL (3.8-4.9); Albumin/Globulin Ratio 1.88 Ratio (1.60-3.17); Alkaline Phosphatase 55 U/L (41-126); BUN/Creat Ratio 28.14 Ratio (12.00-20.00); Blood Urea Nitrogen 19.7 mg/dL (9.0-27.0); Calcium 9.7 mg/dL (8.7-10.3); Carbon Dioxide 24.4 mmol/L (21.6-31.8); Chloride 104 mmol/L (96-109); Globulin 2.4 g/dL (1.6-3.3); Glucose 103 mg/dL (70-110); Potassium 4.5 mmol/L (3.5-5.5); Sodium 139 mmol/L (135-145); Total Bilirubin 0.5 mg/dL (0.3-1.2); Total Protein 6.9 g/dL (6.2-8.2)
== END | disposition home or self-care (01) ==
LOC: LABPAT 10:57
PROVIDERS: ATTEND Orthopaedic Surgery
DX: Z01.818 Encounter for other preprocedural examination (principal); Z22.322 Carrier or suspected carrier of Methicillin resistant Staphylococcus aureus; M17.12 Unilateral primary osteoarthritis, left knee; E11.9 Type 2 diabetes mellitus without complications; R94.31 Abnormal electrocardiogram [ECG] [EKG]; R00.1 Bradycardia, unspecified; I49.9 Cardiac arrhythmia, unspecified
CPT/HCPCS: 80053; 83036; 85027; 85610; 85730; 87070; 93005

== ENCOUNTER 2024-01-28 08:33 | Day surgery (SDC) | payer BC ==
[~2024-01-28 08:33] MED LIST changes: -ACETAMINOPHEN TAB 500 MG TAB PO PRN; -DEXAMETHASONE SOD PHOSPHATE 4 MG/ML 1 ML VIAL IV ONE; -HEPARIN SODIUM,PORCINE 5,000 UNIT/ML 1 ML VIAL SQ PRN; +HYDROmorphone 0.5 MG/0.5 ML SYRINGE IVP PRN; -LACTATED RINGERS 1,000 ML IV SCH; -LIDOCAINE 1% (10MG/ML) FOR IV START INTRADERMA PRN; +MIDAZOLAM 2 MG/2 ML VIAL IV PRN; -ONDANSETRON 4 MG/2 ML VIAL IVP ONE; -droPERidol 5 MG/2 ML VIAL IVP ONE
[2024-01-28] MEDS: LACTATED RINGERS 1,000 ML IV SCH ×2 (09:24→14:03)
[2024-01-28] MEDS: ONDANSETRON 4 MG/2 ML VIAL IVP ONE (09:24)
[2024-01-28] MEDS: DEXAMETHASONE SOD PHOSPHATE 4 MG/ML 1 ML VIAL IV ONE (09:24)
[2024-01-28] MEDS: IV FLUID CONTINUATION 1,000 ML IV ONE (09:26)
[2024-01-28] MEDS: MIDAZOLAM 2 MG/2 ML VIAL IVP ONE (09:50)
[2024-01-28] MEDS: fentaNYL (PF) 50 MCG/ML 2 ML AMP IVP ONE (09:51)
--- NOTE | 2024-01-28 10:06 | P.ANPRN ---
Procedure Note - Anesthesia - Nerve Block Performed Left Adductor Canal Single Time Out Performed: Yes Date of Procedure: 01/28/24 Procedure Start Time: 09:50 Procedure Stop Time: 09:56 Location of Patient: PreOp Indication: Acute Post-Operative Pain, Requested by Surgeon Sedation Type: Sedate with meaningful contact maintained Preparation: Sterile Prep Position: Supine Needle Types: Pajunk Needle Gauge: 21 Ultrasound used to visualize needle placement: Yes Ultrasound used to observe medication spread: Yes Injectate: 0.5% Ropivacaine (see comment for volume) (30 ml + 4 mg Dexamethasone) Blood Aspirated: No Pain Paresthesia on Injection Noted: No Resistance on Injection: Normal Image Stored and Saved: Yes Events: Uneventful and Well Tolerated
--- NOTE | 2024-01-28 10:07 | P.ANPRN ---
Procedure Note - Anesthesia - Nerve Block Performed Left Popliteal Single Time Out Performed: Yes Date of Procedure: 01/28/24 Procedure Start Time: 09:57 Procedure Stop Time: 10:03 Location of Patient: PreOp Indication: Acute Post-Operative Pain, Requested by Surgeon Sedation Type: Sedate with meaningful contact maintained Preparation: Sterile Prep Position: Right Lateral Needle Types: Pajunk Needle Gauge: 21 Ultrasound used to visualize needle placement: Yes Ultrasound used to observe medication spread: Yes Injectate: 0.5% Ropivacaine (see comment for volume) (30 ml + 4 mg Dexamethasone) Blood Aspirated: No Pain Paresthesia on Injection Noted: No Resistance on Injection: Normal Image Stored and Saved: Yes Events: Uneventful and Well Tolerated
[2024-01-28] MEDS ORDERED: SUCCINYLCHOLINE CHLORIDE 200 MG/10 ML VIAL IV ONE (10:50)
[2024-01-28] MEDS ORDERED: ROPIVACAINE 5 MG/ML 30 ML VIAL ONE (10:50)
[2024-01-28] MEDS ORDERED: PROPOFOL 10 MG/ML 20 ML VIAL IV ONE (10:50)
[2024-01-28] MEDS ORDERED: ROCURONIUM 10 MG/ML (5 ML VIAL) IV ONE (10:50)
[2024-01-28] MEDS ORDERED: NEOSTIGMINE 1 MG/ML 10 ML VIAL ONE (10:50)
[2024-01-28] MEDS ORDERED: TRANEXAMIC 1,000 MG/100ML-NACL PREMIX BAG ONE (10:50)
[2024-01-28] MEDS ORDERED: fentaNYL (PF) 50 MCG/ML 2 ML AMP ONE (10:50)
[2024-01-28] MEDS ORDERED: MIDAZOLAM 2 MG/2 ML VIAL ONE (10:50)
[2024-01-28] MEDS ORDERED: GLYCOPYRROLATE 0.2 MG/ML 2 ML VIAL ONE (10:50)
[2024-01-28] MEDS ORDERED: HYDROmorphone (PF) 1 MG/ML ONE (10:50)
[2024-01-28] MEDS ORDERED: LIDOCAINE 1% INJ 10MG/ML (20 ML MDV) ONE (10:50)
[2024-01-28] MEDS ORDERED: DEXAMETHASONE SOD PHOSPHATE 4 MG/ML 1 ML VIAL ONE (10:50)
[2024-01-28] MEDS: LACTATED RINGERS 1,000 ML IV ONE (12:24)
--- NOTE | 2024-01-28 12:28 | FL ---
EXAMINATION TYPE: FL guidance operating room, XR knee limited LT Intraoperative/procedural fluoroscop ic services were provided. Total fluoroscopy time is 53 seconds with a total of 5 submitted images to PACS. Please see the operative/procedural note for further details. DAP: 0.7609 Gycm2
[2024-01-28] MEDS ORDERED: NA PHOS,M-B/NA PHOS,DI-BA 133 ML ENEMA RECTAL PRN (12:58)
[2024-01-28] MEDS ORDERED: HYDROcodone/APAP 10-325MG 1 EACH TAB PO PRN (12:58)
[2024-01-28] MEDS ORDERED: HYDROmorphone 0.5 MG/0.5 ML SYRINGE IVP PRN ×2 (12:58)
[2024-01-28] MEDS ORDERED: HYDROmorphone 1 MG/ML 1 ML SYRINGE IVP PRN (12:58)
[2024-01-28] MEDS ORDERED: MAGNESIUM HYDROXIDE 2,400 MG/30 ML CUP PO PRN (12:58)
[2024-01-28] MEDS ORDERED: hydrOXYzine pamoate 25 MG CAP PO PRN (12:58)
[2024-01-28] MEDS ORDERED: NALOXONE 0.4 MG/ML 1 ML VIAL IV PRN (12:58)
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
[2024-01-28 13:56] VITALS: RESP 16
[2024-01-28] MEDS: SODIUM CHLORIDE 0.9% 1,000 ML IV SCH (14:25)
[2024-01-28 15:36] VITALS: BP 128/80; PULSE 48; TEMP 97.8
[2024-01-28] MEDS: HYDROcodone/APAP 5-325MG 1 EACH TAB PO PRN (16:44)
[2024-01-28] MEDS ORDERED: SENNOSIDES-DOCUSATE SODIUM 1 EACH TAB PO SCH (21:00)
[2024-01-29] MEDS ORDERED: RIVAROXABAN 10 MG TAB PO SCH (09:00)
== END 2024-01-28 17:18 | disposition home or self-care (01) ==
LOC: OR 08:33 → EDSTATUS 10:20 → 4SSUR 13:50 → OR 17:18
PROVIDERS: ATTEND Orthopaedic Surgery
DX: S82.142A Displaced bicondylar fracture of left tibia, initial encounter for closed fracture (principal); G89.18 Other acute postprocedural pain; I10 Essential (primary) hypertension; Z88.2 Allergy status to sulfonamides; Z87.891 Personal history of nicotine dependence; Z79.899 Other long term (current) drug therapy; V19.9XXA Pedal cyclist (driver) (passenger) injured in unspecified traffic accident, initial encounter
CPT/HCPCS: 73560; 27536; 64445; 64447; J2250; J1100; J0690; J2405; J3010

== ENCOUNTER 2024-02-18 10:17 | Day surgery (SDC) | payer BC, OTHER ==
[~2024-02-18 10:17] MED LIST changes: +LIDOCAINE 1% (10MG/ML) FOR IV START INTRADERMA PRN; -MIDAZOLAM 2 MG/2 ML VIAL IV PRN; +droPERidol 5 MG/2 ML VIAL IVP ONE
[2024-02-18] MEDS: IV FLUID CONTINUATION 1,000 ML IV ONE (11:08)
[2024-02-18] MEDS: LACTATED RINGERS 1,000 ML IV SCH (11:09)
[2024-02-18] MEDS: ONDANSETRON 4 MG/2 ML VIAL IVP ONE (11:09)
[2024-02-18] MEDS: DEXAMETHASONE SOD PHOSPHATE 4 MG/ML 1 ML VIAL IV ONE (11:09)
[2024-02-18] MEDS: ACETAMINOPHEN TAB 500 MG TAB PO PRN (11:19)
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
[2024-02-18] MEDS ORDERED: KETOROLAC 15 MG/ML 1 ML VIAL ONE (12:50)
[2024-02-18] MEDS ORDERED: MIDAZOLAM 2 MG/2 ML VIAL ONE (12:50)
[2024-02-18] MEDS ORDERED: PROPOFOL 10 MG/ML 20 ML VIAL IV ONE (12:50)
[2024-02-18] MEDS ORDERED: fentaNYL (PF) 50 MCG/ML 2 ML AMP ONE (12:50)
[2024-02-18] MEDS ORDERED: KETAMINE HCL IN 0.9 % NACL 50 MG/5 ML SYRINGE ONE (12:50)
[2024-02-18] MEDS ORDERED: GLYCOPYRROLATE 0.2 MG/ML 2 ML VIAL ONE (12:50)
[2024-02-18] MEDS: BUPIVACAINE (PF) 0.25% 30 ML VIAL SQ ONE (13:17)
[2024-02-18] MEDS ORDERED: ACETAMINOPHEN TAB 325 MG TAB PO PRN (13:59)
[2024-02-18] MEDS ORDERED: HYDROcodone/APAP 5-325MG 1 EACH TAB PO PRN (13:59)
[2024-02-18] MEDS ORDERED: NALOXONE 0.4 MG/ML 1 ML VIAL IV PRN (13:59)
--- NOTE | 2024-02-18 14:03 | P.OP ---
Date of Procedure: 02/18/24 Procedure(s) Performed: PREOPERATIVE DIAGNOSIS: Left spermatic cord lipoma POSTOPERATIVE DIAGNOSIS: Same PROCEDURE: Exploration left groin with excision left cord lipoma SURGEON: Junie HOLLINGSWORTH: Johnny hernandez ANESTHESIA: General COMPLICATIONS: None OPERATIVE PROCEDURE: Patient placed on the operating table in the supine position per the patient was placed under general anesthesia. The groin was prepped and draped sterilely. An oblique incision was made in the left groin. Dissection through the subcutaneous tissues took place was electrocautery. Superficial vessels were divided using silk sutures. The patient external oblique was then incised sharply. The underlying spermatic cord was encircled with a Clarion drain. The patient had a large lipoma the spermatic cord with the bulk of the lipoma present in the mid scrotal region. We were able to dissect this cord lipoma carefully from its distal extent proximally. As it approached the internal inguinal ring narrowed down to a point that was less than 1 cm. In total the length was 13 cm and the width was 5 cm at its widest area distally. This was excised after 2 separate 0 silk stick tie sutures were placed at the internal inguinal ring. There was no significant defect there. No mesh was utilized. No additional lipomatous masses were seen. The area was irrigated with saline. No bleeding was seen. The external bleak was then reapproximated using a running #2 Vicryl suture. Subcutaneous tissues were reapproximated with 3-0 Vicryl sutures and the skin using a running 4-0 Monocryl subcuticular suture. Skin glue and sterile dressings were then applied. DISPOSITION: Stable to recovery room
[2024-02-18 14:05] VITALS: TEMP 98
[2024-02-18 14:50] VITALS: PULSE 44
[2024-02-18 14:59] VITALS: BP 114/71; RESP 14
== END 2024-02-18 15:48 ==
LOC: OR 10:17
PROVIDERS: ATTEND Surgery
DX: D17.6 Benign lipomatous neoplasm of spermatic cord (principal); I10 Essential (primary) hypertension; Z87.891 Personal history of nicotine dependence; Z88.2 Allergy status to sulfonamides; Z98.890 Other specified postprocedural states; Z79.899 Other long term (current) drug therapy
CPT/HCPCS: 55520; J1100; J0690; J2405; J0665

== ENCOUNTER → 2024-11-07 | Outpatient (CLI) | payer BC ==
--- NOTE | 2024-11-07 14:04 | XR ---
EXAMINATION TYPE: XR sinus DATE OF EXAM: 11/07/2024 12:43 PM COMPARISON: None CLINICAL INDICATION: Male, 39 years old with history of SINUSITIS; TECHNIQUE: 4 views the sinuses frontal, lateral and [place]. FINDINGS: Radiographic evaluation of the orbits fail to demonstrate evidence of an orbital fracture. There is n o radiopaque foreign body identified. The adjacent paranasal sinuses are well aerated an without evid ence of intra-cavitary fluid accumulation. The nasal bridge appears intact. The mandible appears inta ct. Mastoid air cells are well aerated. The frontal sinus and maxillary sinuses are well aerated. . IMPRESSION: 1. No evidence of significant paranasal sinus disease. Consider CT sinus for complete evaluation of the sinuses. 2. No radiographic evidence of radiopaque foreign body. [facility], , 11/07/2024 2:02 PM
[2024-11-07 14:53] LABS: Basophils # (A) 0.02 X 10*3/uL (0.00-0.10); Basophils % (A) 0.2 %; Eosinophils # (A) 0.04 X 10*3/uL (0.04-0.35); Eosinophils % (A) 0.4 %; HCT 47.5 % (39.6-50.0); Lymphocytes # (A) 1.41 X 10*3/uL (0.90-5.00); Lymphocytes % (A) 15.4 %; MCH 29.7 pg (27.0-32.0); MCHC 33.7 g/dL (32.0-37.0); MCV 88.1 FL (80.0-97.0); Mean Platelet Volume 9.3 FL (9.5-12.2); Monocytes # (A) 0.54 X 10*3/uL (0.20-1.00); Monocytes % (A) 5.9 %; NRBC Per 100 WBC 0 X 10*3/uL (0.00-0.01); Neutrophils # (A) 7.12 X 10*3/uL (1.80-7.70); Neutrophils % (A) 77.6 %; Platelet Count 288 X 10*3/uL (140-440); RBC 5.39 X 10*6/uL (4.40-5.60); RDW 12.1 % (11.5-14.5); WBC 9.18 X 10*3/uL (4.50-10.00)
== END | disposition home or self-care (01) ==
LOC: LABWHC1 12:04
PROVIDERS: ATTEND Internal Medicine
DX: J01.90 Acute sinusitis, unspecified (principal)
CPT/HCPCS: 36415; 70220; 85025